=== PATIENT | male | born 1960 | race Caucasian/White ===

== ENCOUNTER → 2020-07-20 09:08 | Outpatient (BNVA) | payer BC, SELFPAY | PROVIDERS: Visit Provider Internal Medicine | DX: R76.8 Other specified abnormal immunological findings in serum (principal); D86.9 Sarcoidosis, unspecified; Z79.899 Other long term (current) drug therapy; M99.01 Segmental and somatic dysfunction of cervical region; I25.10 Atherosclerotic heart disease of native coronary artery without angina pectoris; R21 Rash and other nonspecific skin eruption | CPT/HCPCS: 36415; 84443; 85651; 86140; 86431; 86812; 99204 ==

== ENCOUNTER → 2021-07-02 09:52 | Outpatient (BNVA) | payer OTHER, SELFPAY | PROVIDERS: PCP Pediatrics; Referring Provider Family Medicine; Visit Provider Anesthesiology Pain Medicine | DX: G89.29 Other chronic pain (principal); M54.12 Radiculopathy, cervical region; M48.02 Spinal stenosis, cervical region; M47.812 Spondylosis without myelopathy or radiculopathy, cervical region; M47.816 Spondylosis without myelopathy or radiculopathy, lumbar region; M51.36 Other intervertebral disc degeneration, lumbar region; M79.605 Pain in left leg | CPT/HCPCS: 99204 ==

== ENCOUNTER 2021-07-24 12:49 | Outpatient (CLI) | payer OTHER, SELFPAY ==
--- NOTE | 2021-07-24 13:45 | XR_ITS ---
WS: [id number] CERVICAL SPINE FLEXION EXTENSION TECHNIQUE: 3 views of the cervical spine: lateral neutral, flexion and extension views. CLINICAL INFORMATION: M54.12 - Radiculopathy, cervical region COMPARISON: None. FINDINGS: Straightening of the normal cervical lordosis. Normal C1-C2 reticulation. Moderate spondylitic change s. Disc space narrowing worse at C6-C7 and C7-T1. Slight anterolisthesis C7 on T1 measuring 2.5 mm in neutral. This is stable on flexion-extension. No instability. Partial ankylosis of the C4-C5 and C5- C6 disc spaces. Posterior elements are normal. No other significant findings. XR/XR cervical spine fl/ex [id number] IMPRESSION: 1. Straightening of the normal cervical lordosis with moderate spondylitic grey nges. 2. Grade 1 anterolisthesis C7 on T1. 3. No instability on flexion-extension. 4. Disc space narrowing worse at C6-7.
--- NOTE | 2021-07-24 17:21 | MR_ITS ---
WS: [id number] [place] 1960 MRI CERVICAL SPINE NONCONTRAST TECHNIQUE: Sagittal T1, T2 and STIR imaging. Axial T2, gradient, and fiesta imaging. CLINICAL INFORMATION: Radiculopathy. Neck pain. COMPARISON: None. FINDINGS: Straightening of the normal cervical lordosis. Cord signal is normal. Disc bulging worse at C5-C6 and C6-C7. C2-C3: No significant disc bulging. Mild right and no significant left foraminal narrowing. Spinal ca nal is patent. Mild facet arthropathy. C3-C4: Mild disc bulging with slight effacement of ventral thecal sac. Mild central canal stenosis. M ild right greater than left bony foraminal narrowing. Mild facet arthropathy. C4-C5: No significant disc bulging. Moderate left facet arthropathy. Mild left foraminal narrowing. S barrie canal is patent. C5-C6: Disc osteophyte complex with endplate ridging. Moderate central canal stenosis and slight inde ntation on cervical cord. Severe bilateral bony foraminal narrowing with facet arthropathy and uncove rtebral joint hypertrophy. C6-C7: Right pericentral disc osteophyte complex slightly impinges the right ventral cervical cord. M ild central canal stenosis. Severe right and moderate left bony foraminal narrowing. C7-T1: No significant disc bulging. Spinal canal and foramen are patent. Visualized brain stem structures: Normal. Prevertebral soft tissues: Normal. MR/MR cervical spin wo con* [id number] IMPRESSION: 1. Straightening of the normal cervical lordosis. Cord signal is normal. 2. Moderate central canal stenosis C5-C6 and mild central canal stenosis C6-C7 . 3. Mild central canal stenosis C3-C4. 4. Severe bilateral bony foraminal narrowing C5-C6 and right C6-C7. 5. Moderate left C6-C7 bony foraminal narrowing.
== END 2021-07-24 12:50 | disposition home or self-care (01) ==
PROVIDERS: PCP Pediatrics; Visit Provider Anesthesiology Pain Medicine
DX: M54.12 Radiculopathy, cervical region (principal); M48.02 Spinal stenosis, cervical region
CPT/HCPCS: 72040; 72141

== ENCOUNTER → 2021-07-30 09:54 | Outpatient (BNVA) | payer OTHER, SELFPAY | PROVIDERS: PCP Pediatrics; Visit Provider Anesthesiology Pain Medicine | DX: G89.29 Other chronic pain (principal); M48.02 Spinal stenosis, cervical region; M54.12 Radiculopathy, cervical region; M47.812 Spondylosis without myelopathy or radiculopathy, cervical region; M47.816 Spondylosis without myelopathy or radiculopathy, lumbar region; M51.36 Other intervertebral disc degeneration, lumbar region; M79.605 Pain in left leg; I10 Essential (primary) hypertension | CPT/HCPCS: 99214 ==

== ENCOUNTER → 2021-08-16 15:14 | Outpatient (BNVA) | payer OTHER, SELFPAY | PROVIDERS: PCP Pediatrics; Visit Provider Podiatrist Foot & Ankle Surgery | DX: S99.921A Unspecified injury of right foot, initial encounter (principal); X58.XXXA Exposure to other specified factors, initial encounter; M19.071 Primary osteoarthritis, right ankle and foot | CPT/HCPCS: 73630 ==

== ENCOUNTER 2022-06-10 05:20 | Day surgery (SDC) | payer OTHER, SELFPAY ==
[2022-06-06 13:04] VITALS: BMI 29.0
[2022-06-10 06:08] VITALS: BP 138/78; PULSE 61; RESP 18; TEMP 36.8; O2SAT 98
[2022-06-10] MEDS: sodium chloride 0.9% 1,000 ML 30 ML IV (06:20)
--- NOTE | 2022-06-10 06:50 | ANES.PREANE2 ---
Pre-Anesthetic Assessment Height/Weight: Height 1.8 m Weight 94.347 kg Temp Pulse Resp BP Pulse Ox O2 Del Method 98.3 F 61 18 138/78 98 06/10/22 06:08 06/10/22 06:08 06/10/22 06:08 06/10/22 06:08 06/10/22 06:08 06/10/22 06:08 Operation Date: 06/10/22 07:00 Proposed Procedures p Colonoscopy 59757,Z86.010(Not Applicable) - Joey Jeffery MD Was Beta Abril taken within 24 hours: Yes Was Clonidine taken within 24 hours: N/A Last intake: Intake Last Liquid Date 06/09/22 Last Liquid Time 21:00 Last Solid Date 06/08/22 Last Solid Time 19:00 Last Intake: 23:00 Social No alcohol and No tobacco Exam alert Airway Submandibular: within normal limits Cervical ROM: within normal limits Mallampati: Class II Pulmonary None reported CV/HEM Coronary Artery Disease, Hypertension and Myocardial Infarction (stentsX3 2015,2018) None reported Hepatic None reported GI Gastroesophageal Reflux Disease Musc/skel Lower Back Pain (herniated disks in neck) Neuropsych Headache Anesthetic Plan ASA status: 3 Risk of > 500 ml blood loss (7ml/kg in children): No Medications/Allergies Home Medications Medication Instructions Recorded Confirmed Last Taken Type acetaminophen 500 mg tablet 500 mg PO Q6H PRN Pain, Mild 07/20/20 06/10/22 06/09/22 History (Tylenol Extra Strength) ascorbic acid (vitamin C) 500 mg 500 mg PO DAILY 07/20/20 06/10/22 06/08/22 History capsule aspirin 81 mg tablet,delayed 81 mg PO DAILY 07/20/20 06/10/22 06/06/22 History release (Adult Aspirin Regimen) famotidine 20 mg tablet 20 mg PO DAILY 07/20/20 06/10/22 06/09/22 History turmeric root extract 500 mg 500 mg PO DAILY 07/20/20 06/10/22 06/09/22 History capsule chlorpheniramine maleate 4 mg 4 mg PO Q6H PRN Allergy Symptoms 11/13/20 06/10/22 06/08/22 History tablet (Allergy (chlorpheniramine)) gabapentin 300 mg capsule 300 mg PO TID pain #90 caps 07/30/21 06/10/22 06/09/22 Rx valsartan 80 1 tab PO DAILY #90 tabs 10/19/21 06/10/22 06/09/22 Rx mg-hydrochlorothiazide 12.5 mg tablet clopidogrel 75 mg tablet (Plavix) 75 mg PO DAILY #90 tabs 01/09/22 06/10/22 06/06/22 Rx rosuvastatin 40 mg tablet 40 mg PO DAILY #90 tabs 01/18/22 06/10/22 06/08/22 Rx diclofenac sodium 1 % topical gel 2 g topical QID PRN Pain 02/13/22 06/10/22 06/04/22 History diphenhydramine 25 2 tab PO Q6H PRN Sleep 02/13/22 06/10/22 06/07/22 History mg-acetaminophen 500 mg tablet (Tylenol PM Extra Strength) [id number]-uvc-qqxow acid 0.4 1 tab PO DAILY 02/13/22 06/10/22 06/09/22 History mg-lycopene 300 mcg-lutein 250 mcg tablet (Centrum Silver) tamsulosin 0.4 mg capsule (Flomax) 0.8 mg PO DAILY 02/13/22 06/10/22 06/08/22 History zinc gluconate 50 mg tablet 50 mg PO DAILY 02/13/22 06/10/22 06/08/22 History docusate sodium 100 mg capsule 100 mg PO DAILY 03/21/22 06/10/22 06/07/22 History ginkgo biloba leaf extract 120 mg 120 mg PO DAILY 03/21/22 06/10/22 06/09/22 History capsule melatonin 5 mg capsule 5 mg PO BEDTIME 03/21/22 06/10/22 06/09/22 History omega-3 fatty acids-fish oil 360 1 cap PO DAILY 03/21/22 06/10/22 06/08/22 History mg-1,200 mg capsule (Fish Oil) cinnamon bark 500 mg capsule 500 mg PO DAILY 04/30/22 06/10/22 06/08/22 History (Cinnamon) mecobalamin (vitamin B12) 1,000 1,000 mcg sublingual DAILY 04/30/22 06/10/22 06/09/22 History mcg disintegrating tablet,sublingual methocarbamol 750 mg tablet 750 mg PO QID PRN Pain 04/30/22 06/10/2206/09/22 History valerian root 500 mg capsule 500 mg PO DAILY 04/30/22 06/10/22 06/09/22 History carvedilol 3.125 mg tablet 3.125 mg PO DAILY 06/06/22 06/10/22 06/08/22 History Allergies Allergy/AdvReac Type Severity Reaction Status Date / Time No Known Allergies Allergy Verified 06/10/22 06:05 Current Medications Generic Name Dose Route Start Last Admin Trade Name Gisele PRN Reason Stop Dose Admin Sodium Chloride 1,000 mls @ 30 mls/hr 06/10/22 06:15 06/10/22 06:20 Sodium Chloride 0.9% IV 06/11/22 06:14 30 mls/hr .Q24H PHYLLIS Administration PFSH Anesthesia Medical History (Updated 04/30/22 @ 14:34 by Joey Jeffery MD) CAD (coronary artery disease) Hypertension Family History Other CAD (coronary artery disease) Cancer Dementia Diabetes Hyperlipidemia Hypertension No pertinent family history Stroke Denies family history of Clotting disorder Chronic kidney disease (CKD) Anesthesia complication Bleeding disorder Family history of premature coronary artery disease Lung disease Social History Smoking and tobacco status: never smoked Second hand smoke exposure: No Alcohol intake: never History of recent travel: No Data Anesthesia Cardiac Studies: No Data to Display
--- NOTE | 2022-06-10 07:20 | P.HP_ITS ---
Same Day Surgery H&P Indication for Procedure/HPI DATE OF PROCEDURE: June 10, 2022 CHIEF COMPLAINT/INDICATIONFOR SURGICAL PROCEDURE: polyps PREOP DIAGNOSIS: history of polyps PLANNED PROCEDURE: Operation Date: 06/10/22 07:00 Proposed Procedures p Colonoscopy 46033,Z86.010(Not Applicable) - Joey Jeffery MD Medications/Allergies* Home Medications Medication Instructions Recorded Confirmed Type acetaminophen 500 mg tablet 500 mg PO Q6H PRN Pain, Mild 07/20/20 06/10/22 H istory (Tylenol Extra Strength) ascorbic acid (vitamin C) 500 mg 500 mg PO DAILY 07/20/20 06/10/22 History capsule aspirin 81 mg tablet,delayed 81 mg PO DAILY 07/20/20 06/10/22 History release (Adult Aspirin Regimen) famotidine 20 mg tablet 20 mg PO DAILY 07/20/20 06/10/22 History turmeric root extract 500 mg 500 mg PO DAILY 07/20/20 06/10/22 History capsule chlorpheniramine maleate 4 mg 4 mg PO Q6H PRN Allergy Symptoms 11/13/20 06/10/22 History tablet (Allergy (chlorpheniramine)) diclofenac sodium 1 % topical gel 2 g topical QID PRN Pain 02/13/22 06/10/22 History diphenhydramine 25 2 tab PO Q6H PRN Sleep 02/13/22 06/10/22 History mg-acetaminophen 500 mg tablet (Tylenol PM Extra Strength) [id number]-bev-hyxjw acid 0.4 1 tab PO DAILY 02/13/22 06/10/22 History mg-lycopene 300 mcg-lutein 250 mcg tablet (Centrum Silver) tamsulosin 0.4 mg capsule (Flomax) 0.8 mg PO DAILY 02/13/22 06/10/22 History zinc gluconate 50 mg tablet 50 mg PO DAILY 02/13/22 06/10/22 History docusate sodium 100 mg capsule 100 mg PO DAILY 03/21/22 06/10/22 History ginkgo biloba leaf extract 120 mg 120 mg PO DAILY 03/21/22 06/10/22 History capsule melatonin 5 mg capsule 5 mg PO BEDTIME 03/21/22 06/10/22 History omega-3 fatty acids-fish oil 360 1 cap PO DAILY 03/21/22 06/10/22 History mg-1,200 mg capsule (Fish Oil) cinnamon bark 500 mg capsule 500 mg PO DAILY 04/30/22 06/10/22 History (Cinnamon) mecobalamin (vitamin B12) 1,000 1,000 mcg sublingual DAILY 04/30/22 06/10/22 History mcg disintegrating tablet,sublingual methocarbamol 750 mg tablet 750 mg PO QID PRN Pain 04/30/22 06/10/22 History valerian root 500 mg capsule 500 mg PO DAILY 04/30/22 06/10/22 History carvedilol 3.125 mg tablet 3.125 mg PO DAILY 06/06/22 06/10/22 History Allergies/Adverse Reactions Allergy/AdvReac Type Severity Reaction Status Date / Time No Known Allergies Allergy Verified 06/10/22 06:05 Current Medications: Generic Name Dose Route Start Last Admin Trade Name Freq PRN Reason Stop Dose Admin Sodium Chloride 1,000 mls @ 30 mls/hr 06/10/22 06:15 06/10/22 06:20 Sodium Chloride 0.9% IV 06/11/22 06:14 30 mls/hr .Q24H PHYLLIS Administration Pertinent History/Comorbid Conditions* Medical History (Updated 04/30/22 @ 14:34 by Joey Jeffery MD) CAD (coronary artery disease) Hypertension Family History (Updated 11/13/20 @ 13:22 by Brenda Goodson RN) No pertinent family history Diabetes CAD (coronary artery disease) Dementia Hyperlipidemia Cancer Hypertension Stroke Denies family history of Clotting disorder Chronic kidney disease (CKD) Anesthesia complication Bleeding disorder Family history of premature coronary artery disease Lung disease Social History Smoking and tobacco status: never smoked Second hand smoke exposure: No Alcohol intake: never History of recent travel: No Pertinent Exam Findings alert, oriented x 3, clear to auscultation bilaterally, regular rate & rhythm, operative site marked and procedure specific exam findings Recommendations Surgery/Procedure today Coding Level of Care Code Acute Director Advertising for [employer]
[2022-06-10 07:33] VITALS: BP 115/66; PULSE 57; RESP 16; TEMP 36.2; O2SAT 98
[2022-06-10 07:46] VITALS: BP 110/64; PULSE 60; RESP 18; O2SAT 95
--- NOTE | 2022-06-10 13:24 | ANE.PACU2 ---
Inpatient post-anesthesia follow up: Airway intact: Yes Vital signs: Temperature 97.2 F Pulse Rate 60 Respiratory Rate 18 Blood Pressure 110/64 Pulse Oximetry 95 Oxygen Delivery Me thod Room Air Oxygen Flow Rate Fraction of Inspir ed Oxygen Hydration adequate: Yes Nausea and vomiting: No Pain level: 1 Mental status: Baseline
== END 2022-06-10 07:55 | disposition home or self-care (01) ==
PROVIDERS: PCP Internal Medicine; Visit Provider Internal Medicine
PROC: 0DJD8ZZ Inspection of Lower Intestinal Tract, Via Natural or Artificial Opening Endoscopic (ICD-10-PCS; CPT 45378; principal; 2022-06-10 07:00)
DX: Z12.11 Encounter for screening for malignant neoplasm of colon (principal); I10 Essential (primary) hypertension; I25.10 Atherosclerotic heart disease of native coronary artery without angina pectoris; I25.2 Old myocardial infarction; Z86.010 Personal history of colon polyps; Z79.82 Long term (current) use of aspirin; Z95.5 Presence of coronary angioplasty implant and graft
CPT/HCPCS: 45378; J2704; J7030

== ENCOUNTER → 2022-10-16 12:12 | Outpatient (BNVA) | payer OTHER, SELFPAY | PROVIDERS: PCP Internal Medicine; Visit Provider Family Medicine Adult Medicine | DX: I10 Essential (primary) hypertension (principal); I25.10 Atherosclerotic heart disease of native coronary artery without angina pectoris; E78.5 Hyperlipidemia, unspecified; K40.90 Unilateral inguinal hernia, without obstruction or gangrene, not specified as recurrent; N52.9 Male erectile dysfunction, unspecified; Z85.72 Personal history of non-Hodgkin lymphomas | CPT/HCPCS: 80053; 80061; 84443; 85025 ==

== ENCOUNTER 2022-12-10 08:13 | Oncology outpatient (recurring) (ONCR) | payer OTHER, SELFPAY | END 2022-12-10 23:59 | disposition home or self-care (01) | PROVIDERS: PCP Family Medicine Adult Medicine; Visit Provider Internal Medicine Hematology & Oncology | DX: Z85.72 Personal history of non-Hodgkin lymphomas (principal) ==

== ENCOUNTER 2023-12-31 12:28 | Oncology outpatient (recurring) (ONCR) | payer OTHER, SELFPAY ==
[2023-12-31 12:50] LABS: Basophils % 0.5 %; Eosinophils # 0.2 10^3/uL (0.0-0.8); Eosinophils % 2.8 %; Hematocrit 41.9 % (37-53); Lymphocytes # 2.2 10^3/uL (0.8-4.8); Lymphocytes % 35.6 %; Mean Corpuscular HGB Conc 33.2 g/dL (30-55); Mean Corpuscular Hemoglobin 30.3 pg (27-33); Mean Corpuscular Volume 91.3 fl (82-101); Monocytes # 0.5 10^3/uL (0.2-0.9); Monocytes % 7.3 %; Neutrophils # 3.29 10^3/uL (1.8-7.7); Neutrophils % 53.3 %; Nucleated Red Blood Cells % 0 %; Platelet Count 177 10^3/cmm (157-399); Red Blood Count 4.59 10^6/uL (3.85-5.65); White Blood Count 6.16 10^3/uL (3.29-11.43)
[2023-12-31 13:05] LABS: Alanine Aminotransferase 18 U/L (0-41); Albumin Level 4.8 g/dL (3.5-5.2); Alkaline Phosphatase 59 U/L (40-130); Aspartate Amino Transferase 19 U/L (0-40); Blood Urea Nitrogen 8 mg/dL (8-23); Calcium 10.1 mg/dL (8.5-10.5); Carbon Dioxide 29 mmol/L (22-29); Chloride 104 mmol/L (98-107); Globulin 2.7 g/dL (1.3-4.6); Glomerular Filtration Rate 113.5 mL/min (90-130); Glucose 106 mg/dL (65-115); Osmolality Calculated 293 mOsm/kg (285-295); Sodium 142 mmol/L (136-145); Total Bilirubin 0.4 mg/dL (0.15-1.2); Total Protein 7.5 g/dL (6.6-8.7)
[2023-12-31 13:20] LABS: Anion Gap 13.4 (5-19); Lactate Dehydrogenase 204 U/L (135-225); Potassium 4.4 mmol/L (3.5-5.1)
== END 2024-01-11 23:59 | disposition home or self-care (01) ==
PROVIDERS: PCP Family Medicine Adult Medicine; Visit Provider Nurse Practitioner Family
DX: C82.80 Other types of follicular lymphoma, unspecified site (principal)
CPT/HCPCS: 36415; 80053; 83615; 85025

== ENCOUNTER → 2024-11-01 09:16 | Outpatient (BNVA) | payer MEDICARE, SELFPAY | PROVIDERS: PCP Family Medicine Adult Medicine; Visit Provider Student in an Organized Health Care Education/Training Program | DX: K40.90 Unilateral inguinal hernia, without obstruction or gangrene, not specified as recurrent (principal) | CPT/HCPCS: 99204; 99214 ==

== ENCOUNTER 2024-11-15 12:03 | Oncology outpatient (recurring) (ONCR) | payer MEDICARE, SELFPAY ==
--- NOTE | 2024-11-15 12:45 | CT_ITS ---
WS: [id number] CT ABDOMEN AND PELVIS NONCONTRAST HISTORY: inguinal hernia TECHNIQUE: Imaging performed through the abdomen and pelvis. Coronal and sagittal reformats are submi tted. All CT scans at [facility] use at least one of these dose optimization techniques: auto mated exposure control; mA and/or kV adjustment per patient size (includes targeted exams where dose is matched to clinical indication); or iterative reconstruction. DLP: 570.73 mGy.cm COMPARISON: None available. Lower thorax: Lung bases are clear. Visualized heart is normal. No hiatal hernia. Liver: Normal size liver. No mass or bile duct dilatation. Gallbladder: Normal gallbladder. No pericholecystic fluid or cholelithiasis. No gallbladder wall thic kening. Pancreas: Normal size and attenuation. Normal pancreatic duct. No pancreatitis or mass. Spleen: Normal. Adrenal glands: Normal. No mass. Right kidney: Normal size kidney with no mass or hydronephrosis. Left kidney: Normal size kidney with no mass or hydronephrosis. Aorta: Mild atherosclerosis abdominal aorta with no aneurysm. No free fluid, intraperitoneal air or significant lymphadenopathy. GI tract: No GI tract obstruction. Normal appendix. Mild distal colon diverticular disease. No acute diverticulitis. Abdominal wall: LEFT inguinal hernia contains omentum and portions of the distal colon. There is no o bstruction or ischemia. No fluid in the inguinal canal. RIGHT inguinal canal is patent also containin g fat only. Tiny umbilical hernia contains fat. Pelvis: No free fluid in the pelvis. Urinary bladder is well distended. There are several calcificati ons in the pelvis which are external to the distal ureters. No adenopathy. Osseous structures: Unremarkable. CT/CT abdomen pelvis wo con [id number] IMPRESSION: 1. LEFT inguinal hernia contains omentum and sigmoid colon. No ischemic change s or obstruction. 2. Patent RIGHT inguinal canal contains fat only. 3. No renal obstruction. 4. No adenopathy or ascites.
== END 2024-12-10 23:59 | disposition home or self-care (01) ==
LOC: ONCMED 12:08 → RAD 12:12 → ONCMED 11-16 10:00
PROVIDERS: PCP Family Medicine Adult Medicine; Visit Provider Student in an Organized Health Care Education/Training Program
DX: C82.80 Other types of follicular lymphoma, unspecified site (principal); K40.90 Unilateral inguinal hernia, without obstruction or gangrene, not specified as recurrent
CPT/HCPCS: 74176

== ENCOUNTER → 2024-11-22 09:57 | Outpatient (BNVA) | payer MEDICARE, SELFPAY | PROVIDERS: PCP Family Medicine Adult Medicine; Visit Provider Student in an Organized Health Care Education/Training Program | DX: Z09 Encounter for follow-up examination after completed treatment for conditions other than malignant neoplasm (principal) | CPT/HCPCS: 99213 ==

== ENCOUNTER → 2025-02-24 12:42 | Outpatient (BNVA) | payer MEDICARE, SELFPAY | PROVIDERS: PCP Family Medicine Adult Medicine; Visit Provider Nurse Practitioner Family | DX: L82.1 Other seborrheic keratosis (principal); L98.8 Other specified disorders of the skin and subcutaneous tissue; D23.71 Other benign neoplasm of skin of right lower limb, including hip; L81.4 Other melanin hyperpigmentation; L91.8 Other hypertrophic disorders of the skin | CPT/HCPCS: 99214 ==

== ENCOUNTER 2025-03-14 13:41 | Oncology outpatient (recurring) (ONCR) | payer MEDICARE, SELFPAY ==
[2025-03-14 14:22] LABS: Basophils # 0.1 10^3/uL (0.0-0.1); Basophils % 0.7 %; Eosinophils # 0.2 10^3/uL (0.0-0.8); Hematocrit 39.6 % (37-53); Lymphocytes # 2.2 10^3/uL (0.8-4.8); Lymphocytes % 30.2 %; Mean Corpuscular HGB Conc 33.1 g/dL (30-55); Mean Corpuscular Hemoglobin 30.5 pg (27-33); Mean Corpuscular Volume 92.1 fl (82-101); Mean Platelet Volume 10.5 fL (7.4-10.4); Monocytes # 0.6 10^3/uL (0.2-0.9); Monocytes % 8.3 %; Neutrophils # 4.21 10^3/uL (1.8-7.7); Neutrophils % 57.1 %; Nucleated Red Blood Cells % 0 %; Platelet Count 198 10^3/cmm (157-399); Red Cell Distribution Width 12.6 % (12.1-15.1); White Blood Count 7.36 10^3/uL (3.29-11.43)
[2025-03-14 14:47] LABS: Alanine Aminotransferase 16 U/L (0-41); Albumin Level 4.5 g/dL (3.5-5.2); Alkaline Phosphatase 59 U/L (40-130); Anion Gap 15.1 (5-19); Aspartate Amino Transferase 16 U/L (0-40); Blood Urea Nitrogen 9 mg/dL (8-23); Calcium 9.4 mg/dL (8.5-10.5); Carbon Dioxide 25 mmol/L (22-29); Chloride 105 mmol/L (98-107); Globulin 2.4 g/dL (1.3-4.6); Glucose 105 mg/dL (65-115); Lactate Dehydrogenase 149 U/L (135-225); Osmolality Calculated 291 mOsm/kg (285-295); Potassium 4.1 mmol/L (3.5-5.1); Sodium 141 mmol/L (136-145); Total Bilirubin 0.3 mg/dL (0.15-1.2); Total Protein 6.9 g/dL (6.6-8.7)
== END 2025-04-11 23:59 | disposition home or self-care (01) ==
PROVIDERS: PCP Family Medicine Adult Medicine; Visit Provider Nurse Practitioner Family
DX: Z08 Encounter for follow-up examination after completed treatment for malignant neoplasm (principal); Z85.72 Personal history of non-Hodgkin lymphomas; L98.9 Disorder of the skin and subcutaneous tissue, unspecified; Z98.890 Other specified postprocedural states
CPT/HCPCS: 36415; 80053; 83615; 85025; 99213

== ENCOUNTER 2025-03-22 14:23 | Outpatient (CLI) | payer MEDICARE, SELFPAY ==
--- NOTE | 2025-03-22 14:27 | XRR_ITS ---
PROCEDURE INFORMATION: Exam: XR Right Hip Exam date and time: 03/22/2025 2:38 PM Age: 64 years old Clinical indication: Hip pain; Right hip; Additional info: Right thigh pain TECHNIQUE: Imaging protocol: Radiologic exam of the right hip. Views: 1 view hip with pelvis when performed. COMPARISON: CT abdomen pelvis wo con [id number] 11/15/2024 12:25 PM FINDINGS: Bones/joints: Prominent right os acetabulum. Estimated moderate right hip DJD. No acute fracture or dislocation Soft tissues: Unremarkable. XR/XR hip RT 2-3V wo/w pel* [id number] IMPRESSION: No acute findings. See above
--- NOTE | 2025-03-22 14:27 | XRR_ITS ---
PROCEDURE INFORMATION: Exam: XR Right Femur Exam date and time: 03/22/2025 2:38 PM Age: 64 years old Clinical indication: Pain; Thigh; Right; Additional info: Right femur pain TECHNIQUE: Imaging protocol: Radiologic exam of the right femur. Views: 2 views. COMPARISON: CT abdomen pelvis con [id number] 11/15/2024 12:25 PM FINDINGS: Bones/joints: Right hip demonstrates coxa profunda, estimated moderate DJD, and suggestion of global acetabular over coverage. No acute fracture or dislocation Soft tissues: Unremarkable. XR/XR femur RT min 2V* [id number] IMPRESSION: No acute findings. See above
== END 2025-03-22 14:24 | disposition home or self-care (01) ==
PROVIDERS: PCP Family Medicine; Visit Provider Family Medicine
DX: I25.10 Atherosclerotic heart disease of native coronary artery without angina pectoris (principal); I10 Essential (primary) hypertension; Z79.02 Long term (current) use of antithrombotics/antiplatelets; Z79.82 Long term (current) use of aspirin; Z95.5 Presence of coronary angioplasty implant and graft
CPT/HCPCS: 73502; 73552; 99213

== ENCOUNTER → 2025-04-22 12:17 | Outpatient (BNVA) | payer MEDICARE, SELFPAY | PROVIDERS: PCP Family Medicine; Visit Provider Family Medicine | DX: Z11.4 Encounter for screening for human immunodeficiency virus [HIV] (principal); Z11.59 Encounter for screening for other viral diseases; I25.10 Atherosclerotic heart disease of native coronary artery without angina pectoris; E78.2 Mixed hyperlipidemia; Z12.5 Encounter for screening for malignant neoplasm of prostate | CPT/HCPCS: 80061; 86803; 87806; G0103 ==

== ENCOUNTER 2025-05-11 10:28 | Oncology outpatient (recurring) (ONCR) | payer MEDICARE, SELFPAY ==
--- NOTE | 2025-05-11 11:00 | MR_ITS ---
WS: [id number] MRI CERVICAL SPINE NONCONTRAST HISTORY: Ank spondylitis; cervical stenosis with R leg weakness COMPARISON: 07/24/2021 Technique: Multiplanar, multisequence noncontrast imaging of the cervical spine. Straightening and slight reversal of the normal cervical lordosis. Reversal centered at C5-6. Signal within the cervical cord is normal. Visualized posterior fossa is unremarkable. Craniocervical junction, C1 and C2 relationship, odontoid process and soft tissues are normal. C2-C3: Mild facet arthritis. Moderate RIGHT foraminal stenosis. No central or LEFT foraminal stenosis. C3-C4: Mild annular disc bulging with effacement of ventral CSF. Mild central stenosis. Bilateral foraminal osteophytes resulting in moderate bilateral foraminal stenosis, RIGHT greater than LEFT. C4-C5: Mild facet joint arthropathy. No significant stenosis. C5-C6: Mild diffuse annular disc bulging osteophytic ridging. Bilateral foraminal disc osteophyte complexes. Moderate central with severe bilateral foraminal stenosis. C6-C7: Diffuse osteophytic ridging larger RIGHT proximal foraminal disc osteophyte complex displacing the nerve roots. Very similar to the prior study. Mild central with severe RIGHT and moderate LEFT foraminal stenosis and facet arthropathy. C7-T1: No stenosis. Paraspinal soft tissue are normal. MR/MR cervical spin wo con* [id number] IMPRESSION: 1. Multilevel areas of central and foraminal stenosis and facet arthropathy. N o significant progression of disease since 07/24/2021. 2. Straightening of the normal cervical lordosis is stable. 3. C5-6: Moderate central with severe bilateral foraminal stenosis due to disc osteophyte disease. 4. C6-7: Severe RIGHT and moderate LEFT foraminal stenosis and mild central st enosis due to disc osteophyte disease. 5. C3-4: Moderate bilateral foraminal stenosis, RIGHT greater than LEFT and mi ld central stenosis. 6. Moderate RIGHT foraminal stenosis at C2-3.
--- NOTE | 2025-05-11 13:00 | MR_ITS ---
WS: [id number] MRI RIGHT HIP WITHOUT CONTRAST. COMPARISON: CT 11/15/2024, hip radiograph 03/22/2025 Multiplanar, multisequence imaging is performed without contrast. History: RIGHT hip pain. Symmetric appearance of the hips. There is narrowing of both hip joints. No fractures or subluxation. There is focal marrow edema along the anterior superior acetabulum measuring over 1.9 x 1.0 cm. There is a focal cyst surrounded by marrow edema. This is most consistent with a subchondral cyst with reactive marrow edema. No labral tear is identified. No muscle atrophy or edema. No greater trochanter bursitis. No tear or signal abnormality within the gluteus medius insertion site. MR/MR hip RT wo con* [id number] IMPRESSION: 1. Subchondral cyst surrounded by marrow edema involving the superior RIGHT ac etabulum. Entire area of involvement measures 1.9 x 1.0 cm. 2. No fractures. 3. Mild narrowing of each hip joint with mild loss of cartilage. No fractures.
== END 2025-05-12 23:59 | disposition home or self-care (01) ==
PROVIDERS: PCP Family Medicine; Visit Provider Nurse Practitioner Family
DX: Z08 Encounter for follow-up examination after completed treatment for malignant neoplasm (principal); Z85.72 Personal history of non-Hodgkin lymphomas; L98.9 Disorder of the skin and subcutaneous tissue, unspecified; Z98.890 Other specified postprocedural states; C82.80 Other types of follicular lymphoma, unspecified site; K40.90 Unilateral inguinal hernia, without obstruction or gangrene, not specified as recurrent; M48.02 Spinal stenosis, cervical region; G99.2 Myelopathy in diseases classified elsewhere; M45.0 Ankylosing spondylitis of multiple sites in spine; M25.551 Pain in right hip
CPT/HCPCS: 72141; 73721

== ENCOUNTER → 2025-05-26 09:46 | Outpatient (BNVA) | payer MEDICARE, SELFPAY | PROVIDERS: PCP Family Medicine; Referring Provider Family Medicine; Visit Provider Orthopaedic Surgery | DX: M16.11 Unilateral primary osteoarthritis, right hip (principal) | CPT/HCPCS: 99204 ==

== ENCOUNTER 2025-06-13 05:00 | Outpatient (RCR) | payer MEDICARE, SELFPAY | END 2025-07-12 23:59 | disposition home or self-care (01) | LOC: MPT 05:00 | PROVIDERS: Visit Provider Orthopaedic Surgery | DX: M25.551 Pain in right hip (principal) | CPT/HCPCS: 97110; 97162 ==

== ENCOUNTER → 2025-07-25 08:39 | Outpatient (BNVA) | payer MEDICARE, SELFPAY | PROVIDERS: PCP Family Medicine; Visit Provider Orthopaedic Surgery | DX: M25.551 Pain in right hip (principal) | CPT/HCPCS: 73630; 99213 ==

== ENCOUNTER 2025-07-28 10:04 | Outpatient (RCR) | payer MEDICARE, SELFPAY | END 2025-07-29 10:20 | disposition home or self-care (01) | LOC: MPT 10:04 | PROVIDERS: Visit Provider Orthopaedic Surgery | DX: M25.551 Pain in right hip (principal); G89.29 Other chronic pain | CPT/HCPCS: 97110; 97112 ==

== ENCOUNTER 2025-08-05 06:27 | Day surgery (SDC) | payer MEDICARE, SELFPAY ==
[2025-08-05] VITALS (11 sets, daily range): BP systolic 104–126; BP diastolic 54–76; PULSE 51–59; RESP 8–18; TEMP 36.3–36.4; O2SAT 93–99; BMI 29.1
--- NOTE | 2025-08-05 06:19 | P.BOP_ITS ---
Date of Procedure: 12/26/23 Surgeon: Shon Baer DPM [employer]): [place] Procedure(s) performed: Right first metatarsal phalangeal joint fusion. Findings of the procedure(s): None Estimated blood loss: 2 mL Specimen(s) removed: No specimens Post-operative diagnosis: Right hallux rigidus
--- NOTE | 2025-08-05 06:19 | W.PM.OPSUD ---
Surgery/Procedure H&P Update DATE OF PROCEDURE: August 05, 2025 DATE H&P PERFORMED: 07/25/25 H&P UPDATE INFORMATION: I have reviewed H&P completed within last 30 days, I have examined patient prior to procedure, No changes to prior documentation, H&P is in [facility] EMR on date indicated and Risks and benefits of the procedure reviewed PRIMARY INDICATION FOR PROCEDURE: Right hallux rigidus PLANNED PROCEDURE: Operation Date: 08/05/25 08:20 Proposed Procedures p first metatarsal phalangeal joint fusion(Right) - Shon Baer DPM
--- NOTE | 2025-08-05 06:20 | P.OP_ITS ---
Operative Report Date of procedure: August 05, 2025 Pre-op diagnosis: Hallux rigidus of right foot M20.21 Right foot pain M79.671 Post-op diagnosis: Hallux rigidus of right foot M20.21 Right foot pain M79.671 Procedure done: Right first metatarsal phalangeal joint fusion. CPT code 23356 Implants: [employer] first MTP plate with 2.7 mm locking screws distally x 3, 3.5 mm locking and locking screws proximally total of 3 and a 3 mm homerun screw, 3-0 Vicryl, 4-0 Vicryl, 4 nylon Specimens removed/disposition: None Surgeon: Shon Baer DPM [employer] Coordinator: Arley Estimated blood loss: 2 43 Complications: None Findings: hallux rigidus, right Brief History: 64-year old patient last seen in 2020 at our clinic, presents for right big toe, no cartilage between the bones. Patient states 8/10 pain at its worst. Patient is has one last session of PT for right hip/thigh pain. Patient describes a achy arthritic type pain that intensifies with activity, no longer responding to orthotics and supportive shoes and anti-inflammatories would like to discuss surgical options. I reviewed at length with the patient, the risks, potential complications, benefits, alternatives, expectations, and typical outcomes associated with the surgery. The risks and potential complications were explained in detail, including but not limited to infection, wound dehiscence or soft tissue complications, bleeding and hematoma, chronic edema, neuritis or nerve damage producing numbness or chronic pain, CRPS, failure to relieve pain or worsening pain, thick / painful / unsightly scar, limited motion / stiffness, malposition, delayed union, malunion, or nonunion, fracture, reaction to implants, anesthetic complications, venous thromboembolism, and deformity recurrence. I discussed the notion of no regrets with the patient as it pertains to complications and outcomes. The patient seemed to understand the nature of the proposed care and required convalescence. They asked appropriate questions, answered to their satisfaction. They are aware no guarantees can be made as to a satisfactory outcome and they understand there may be other possible unforeseen complications or outcomes not listed here that will be treated accordingly if they arise. There were no written or implied guarantees given to the patient. They gave informed consent to proceed. Procedure: Under mild sedation the patient was brought to the operating room and remained on the gurney in supine position. A timeout was performed. Anesthesia was then administered by the anesthesia service. Local anesthesia injected by myself consisting of 20 cc of 0.5% Marcaine plain in a right Lee block fashion with an additional 20 cc of Exparel infiltrated proximally to the operative site in a grid like fashion subcutaneously. A well-padded pneumatic tourniquet applied to the right ankle. The right lower extremity was then scrubbed, prepped and drape d utilizing normal aseptic technique. Right foot and ankle was then exsanguinated with an Esmarch bandage and tourniquet inflated to 250 mmHg. Attention was directed to the dorsal medial aspect of the right first metatarsal tender joint where a linear longitudinal incision was made medial and parallel to the extensor hallucis longus tendon through skin with dissection carried down through subcutaneous tissue to layer first metatarsophalangeal joint capsule utilizing extra combination of sharp and blunt technique. Care was taken to retract and preserve neurovascular and tendinous structures. All bleeders were ligated and cauterized as necessary. Periosteal capsular incision was performed revealing the head of the first metatarsal and base of the proximal phalanx were dissected of the soft tissue and capsular attachments there was significant degenerative changes with squaring of the first metatarsal head cartilage loss and dorsal osteophytes and loose chondral bodies which were excised, the head of the first metatarsal and base of the proximal phalanx were denuded of articular surface down to bleeding subchondral bone utilizing cone and cup reamers, incision was irrigated saline solution, fenestrating drill bit utilized to further prepare arthrodesis site at both bases including the first metatarsal head and proximal phalanx base, this was then temporally fixated in ideal p osition slight valgus, neutral in the frontal plane and slight dorsiflexion. Loading the right foot with a metal lid demonstrated that the tuft and pulp of the right great toe gently apposition to the steel plate in appropriate position. This was then fixated with a dorsal locking plate with 2.7 millimeter screws distally and 3.5 millimeter screws proximally and 3 mm homerun screw all provided by [employer] 28. The incision was irrigated with saline solution, AP, oblique and lateral view with intraoperative mini C arm confirmed excellent placement of arthrodesis position and hardware without violating adjacent joint. The incision was further irrigated with saline solution and closed in a layered fashion with joint capsule and periosteum reapproximated with 3-0 Vicryl, subcutaneous tissue with 4-0 Vicryl and skin with 4-0 nylon. The incision was then dressed with Xeroform, sterile 4 x 4 gauze, Kerlix and Apollo wrap. Cam boot was applied to the right lower extremity. Tourniquet was then deflated and a prompt hyperemic response is noted to the distal digits of the right foot. Patient tolerated the procedure and anesthesia well and was transferred to the PACU with vital signs stable and vascular status intact. Following a period of postoperative monitoring he will be discharged home without home care instructions and scheduled follow-up.
--- NOTE | 2025-08-05 07:30 | P.ANESASSM_ITS ---
Pre-Anesthetic Assessment Height/Weight: Height 1.8 m Weight 94.801 kg Temp Pulse Resp BP Pulse Ox O2 Del Method 97.5 F L 51 L 18 126/76 96 Room Air 08/05/25 06:55 08/05/25 06:55 08/05/25 06:55 08/05/25 06:55 08/05/25 06:55 08/05/25 06:55 Preop Diagnosis: Right hallux rigidus Operation Date: 08/05/25 08:20 Proposed Procedures p first metatarsal phalangeal joint fusion(Right) - Shon Baer DPM Familial anesthetic complications: None Was Beta Abril taken within 24 hours: N/A Was Clonidine taken within 24 hours: N/A Last intake: Intake Last Liquid Date 08/04/25 Last Liquid Time 21:00 Last Solid Date 08/04/25 Last Solid Time 20:00 Social No alcohol and No tobacco Exam alert, oriented x 3, clear to auscultation bilaterally and regular rate & rhythm Airway Mallampati: Class II Dentition: full CV/HEM Coronary Artery Disease (stents) GI Gastroesophageal Reflux Disease Metabolic Hyperlipidemia [facility] [place] ankylosing spondylitis Anesthetic Plan ASA status: 3 Anesthesia: MAC Risk of > 500 ml blood loss (7ml/kg in children): No Medications/Allergies Home Medications ?Medication ?Instructions ?Recorded ?Confirmed ?Last Taken ?Type acetaminophen 500 mg tablet 500 mg PO Q6H PRN Pain, Mi ld 07/20/20 08/04/25 06/09/22 History (Tylenol Extra Strength) aspirin 81 mg tablet,delayed 81 mg PO DAILY 07/20/20 1 07/31/25 History release (Adult Aspirin Regimen) diclofenac sodium 1 % topical gel 2 g topical QID PRN Pain 02/13/22 08/04/25 06/04/22 History nitroglycerin 0.4 mg sublingual 0.4 mg sublingual Q5M PRN chest 02/25/23 08/04/25 Unknown Rx tablet pain #25 tabs sildenafil 25 mg tablet 25 mg PO DAILY PRN sexual ac tivity 06/22/24 08/04/25 Unknown Rx #30 tabs valsartan 160 mg tablet See Rx Instructions .Route 1 08/04/25 08/04/25 Rx .COMPLEX #90 tabs clopidogrel 75 mg tablet See Rx Instructions .Route 1 11/18/23 08/04/25 07/31/25 Rx .COMPLEX #90 tabs rosuvastatin 40 mg tablet See Rx Instructions .Route 0 12/27/24 08/04/25 08/04/25 Rx .COMPLEX #90 tabs carvedilol 3.125 mg tablet See Rx Instructions .Route 02/09/25 08/04/25 08/04/25 Rx .COMPLEX #180 tabs diphenhydramine 25 2 tab PO .Q HS PRN Sleep 08/0608/04/25 Unknown History mg-acetaminophen 500 mg tablet (Tylenol PM Extra Strength) gabapentin 300 mg capsule 300 mg PO TID #270 caps 03/1308/04/25 08/04/25 Rx methocarbamol 750 mg tablet 750 mg PO QID #360 tabs 08/04/25 Unknown Rx COVID vac -(12up)(Mod)(PF) 50 0.5 ml IM ONCE #0.5 mL 06/22/25 07/25/25 Unknown Rx mcg/0.5 mL IM syringe hydrocodone 10 mg-acetaminophen 1 tab PO Q6H PRN pain 7 days #28 08/05/25 Unknown Rx 325 mg tablet tabs Allergies Allergy/AdvReac Type Severity Reaction Status Date / Time No Known Allergies Allergy Verified 07/25/25 09:46 Current Medications Generic Name Dose Route Start Last Admin Trade Name Freq PRN Reason Stop Dose Admin Sodium Chloride 1,000 mls @ 30 mls/hr 08/05/25 06:45 08/05/25 07:16 Sodium Chloride 0.9% IV 08/06/25 06:44 30 mls/hr .Q24H PHYLLIS Administration PFSH Anesthesia Medical History Osteoarthritis of right hip Ankylosing spondylitis Stenosis of cervical spine with myelopathy Myelopathy concurrent with and due to stenosis of lumbar spine Degenerative lumbar disc Cervical stenosis of spine Follicular low grade B-cell lymphoma had chemo at [facility] Erectile dysfunction GERD (gastroesophageal reflux disease) BPH (benign prostatic hyperplasia) CAD (coronary artery disease) Stents to RCA and OM I and [place] 2016 Hypertension Surgical History Hx of right inguinal hernia repair Hx of colonoscopy 8.29.22; diverticulosis only; but repeat 5yrs due to past polyps History of tonsillectomy History of coronary artery stent placement X 3 Family History Father Normal pressure hydrocephalus Mother Diabetes mellitus, type 2 CAD (coronary artery disease) Arrhythmia Breast cancer Sister CAD (coronary artery disease) Hypertension Brother Chronic kidney disease (CKD) Other Cancer Dementia Diabetes Hyperlipidemia Stroke Denies family history of Anesthesia complication Bleeding disorder Social History Smoking and tobacco/nicotine status: never used tobacco/nicotine Second hand smoke exposure: No Alcohol intake: never Substance/Drug Use: never Household members: spouse Marital status: Number of children: 0 Highest education level completed: Some College, No Degree Current occupational status: retired Previous occupational history: delivering [employer]
[2025-08-05] MEDS: ceFAZolin 2,000 mg SDV 2000 MG IVP (08:10)
[2025-08-05] MEDS: BUPivacaine liposome 13.3 mg/mL SDV 20 mL 266 MG INFILTRATI (08:36)
[2025-08-05] MEDS: BUPivacaine 0.5% INJ 30 mL 20 ML INJECTION (08:37)
--- NOTE | 2025-08-05 10:30 | ANE.PACU2 ---
Inpatient post-anesthesia follow up: Airway intact: Yes Vital signs: Temperature 97.4 F Pulse Rate 53 Respiratory Rate 16 Blood Pressure 120/74 Pulse Oximetry 96 Oxygen Delivery Me thod Room Air Oxygen Flow Rate 10 Fraction of Inspir ed Oxygen Hydration adequate: Yes Nausea and vomiting: No Pain level: 1 Mental status: Baseline
== END 2025-08-05 10:31 | disposition home or self-care (01) ==
PROVIDERS: PCP Family Medicine; Visit Provider Podiatrist Foot & Ankle Surgery
PROC: (CPT 28750; principal; 2025-08-05 08:20)
DX: M20.21 Hallux rigidus, right foot (principal); I25.10 Atherosclerotic heart disease of native coronary artery without angina pectoris; I10 Essential (primary) hypertension; Z95.5 Presence of coronary angioplasty implant and graft; K21.9 Gastro-esophageal reflux disease without esophagitis; E78.5 Hyperlipidemia, unspecified; Z79.82 Long term (current) use of aspirin; Z79.02 Long term (current) use of antithrombotics/antiplatelets; Z79.891 Long term (current) use of opiate analgesic
CPT/HCPCS: 28750; A7015; C1713; J0666; J0690; J1100; J2250; J2405; J2704; J3010; J3490; J7030; J9999

== ENCOUNTER → 2025-08-10 09:32 | Outpatient (BNVA) | payer MEDICARE, SELFPAY | PROVIDERS: PCP Family Medicine; Visit Provider Podiatrist Foot & Ankle Surgery | DX: M79.671 Pain in right foot (principal); Z98.890 Other specified postprocedural states | CPT/HCPCS: 99024 ==

== ENCOUNTER → 2025-08-18 13:04 | Outpatient (BNVA) | payer MEDICARE, SELFPAY | PROVIDERS: PCP Family Medicine; Visit Provider Podiatrist Foot & Ankle Surgery | DX: Z98.890 Other specified postprocedural states (principal); M79.671 Pain in right foot | CPT/HCPCS: 73630; 99024 ==

== ENCOUNTER → 2025-09-15 12:43 | Outpatient (BNVA) | payer MEDICARE, SELFPAY | PROVIDERS: PCP Family Medicine; Visit Provider Podiatrist Foot & Ankle Surgery | DX: Z98.890 Other specified postprocedural states (principal) | CPT/HCPCS: 73630; 99024 ==

== ENCOUNTER → 2025-09-20 10:54 | Outpatient (BNVA) | payer MEDICARE, SELFPAY | PROVIDERS: Absent Provider Internal Medicine Rheumatology; PCP Family Medicine; Visit Provider Internal Medicine Rheumatology | DX: M54.9 Dorsalgia, unspecified (principal); M54.2 Cervicalgia; Q76.6 Other congenital malformations of ribs; M51.370 Other intervertebral disc degeneration, lumbosacral region with discogenic back pain only; M47.896 Other spondylosis, lumbar region; G89.29 Other chronic pain; R76.89 Other specified abnormal immunological findings in serum; I25.10 Atherosclerotic heart disease of native coronary artery without angina pectoris; I10 Essential (primary) hypertension | CPT/HCPCS: 72040; 72072; 72100; 99204; 99214 ==

== ENCOUNTER → 2025-10-11 07:50 | Outpatient (BNVA) | payer MEDICARE, SELFPAY | PROVIDERS: PCP Family Medicine; Visit Provider Orthopaedic Surgery | DX: M48.02 Spinal stenosis, cervical region (principal); M50.323 Other cervical disc degeneration at C6-C7 level; M47.892 Other spondylosis, cervical region | CPT/HCPCS: 99214 ==

== ENCOUNTER → 2025-10-12 12:32 | Outpatient (BNVA) | payer MEDICARE, SELFPAY | PROVIDERS: PCP Family Medicine; Visit Provider Podiatrist Foot & Ankle Surgery | DX: Z98.890 Other specified postprocedural states (principal) | CPT/HCPCS: 73630; 99024 ==